=== PATIENT | female | born 1975 | race Caucasian/White ===

== ENCOUNTER 2020-02-17 01:17 | Day surgery (SDC) | payer OTHER, BC, SELFPAY ==
[2020-02-12 16:15] VITALS: BMI 42.9
--- NOTE | 2020-02-14 09:51 | PM.IMHP ---
H&P: HPI History of Present Illness Chief complaint: Large Left Ovarian Cyst Narrative: Rupa Toledo is a 44 year old female Who is status post hysterectomy. She complains of pelvic pain and has a large left ovarian cyst. This has caused her discomfort and light of the fact that has not changed and actually gotten larger for laparoscopy she will have this ovary removed. Risks and benefits reviewed including but not exclusive of aspiration 1 a, bleeding, transfusion, infection, perforation injury to bowel, bladder, ureters, or other internal organs with need for laparotomy. She had all questions answered. She read the ACOG handout entitled laparoscopy. She asked Review of Systems Review of Systems: All systems reviewed & are unremarkable except as noted in HPI and below Meds Home Medications and Allergies Home Medications Medication Instructions Recorded Confirmed Type No Home Medications 02/12/20 02/12/20 History Allergies Allergy/AdvReac Type Severity Reaction Status Date / Time morphine AdvReac SEVERE Verified 02/12/20 16:25 VOMITING Exam Const: General: no acute distress Eyes: General: appearance normal, both eyes and all related structures Neck: Neck: supple and no JVD Thyroid: thyroid normal Resp: Effort & Inspection: normal respiratory effort Auscultation: clear to auscultation bilaterally Cardio: Rate: regular rate Rhythm: regular rhythm GI: Inspection: non-distended GI Palp: Yes Soft to palpation, No Tenderness to palpation present (GI) and No Guarding due to palpation present (GI) Auscultation: normal bowel sounds : External Female Exam: normal external appearance Speculum Exam - Vagina: normal appearance of the vagina Speculum Exam - Cervix: Cervix absent Bimanual exam- vagina & uterus: uterus absent Bimanual Exam- Adnexa, other: tender Skin: General skin exam: no rashes or lesions noted Extrem: General: normal to inspection and no edema Psych: Mental Status: mental status grossly normal Affect: normal affect Assessment and Plan Additional Plan impression: Complex left ovarian cyst Plan, laparoscopic left salpingo-oophorectomy
[2020-02-17] VITALS (7 sets, daily range): BP systolic 104–140; BP diastolic 64–94; PULSE 68–96; RESP 10–18; TEMP 36.8–37; O2SAT 93–100
--- NOTE | 2020-02-17 06:31 | WPDHPUPDATE1 ---
History and Physical Update Update Date/Time: 02/17/20 06:31 History and Physical has been reviewed, including an updated exam of the patient. There are NO changes in the patient's condition. Risks, benefits, and alternatives have been discussed and questions answered. Patient agrees to proceed with procedure.
[2020-02-17] MEDS: LACTATED RINGERS 1,000 ML 30 ML IV CONT ×2 (07:00→08:52)
--- NOTE | 2020-02-17 07:01 | WPDANESEPPF ---
Anes - Initial Pre Proc Eval Procedure: Operation Date: 02/17/20 07:30 Proposed Procedures p Laparoscopic Left Salpingo-Oophorectomy - Juan Clifton MD Date/Time: 02/17/20 07:01 Surgeon: Juan Clifton MD Pre Op Diagnosis: Large Left Ovarian Cyst Patient Data Age: 44 Gender: F Height: 5 ft 4 in Weight: 113.4 kg Allergies Allergy/AdvReac Type Severity Reaction Status Date / Time morphine AdvReac SEVERE Verified 02/12/20 16:25 VOMITING Home Medications Medication Instructions Recorded Confirmed Type No Home Medications 02/12/20 02/12/20 History hydrocodone-acetaminophen [[place]] 1 tablet PO Q4H PRN #30 tablet 02/17/20 Rx Patient hx anesthesia problems: post op nausea/vomiting Family hx anesthesia problems: none PMFSH Past Medical History Medical History (Updated 02/17/20 @ 07:01 by Austyn Mckeon MD) GERD (gastroesophageal reflux disease) Morbid obesity Anes - Eval Final PreProcedure Day of Procedure 02/17/20 07:01 Patient weight: morbidly obese Heart: regular rate and rhythm Lungs: clear to auscultation Airway: Mallampati scale class III Neurological: alert and oriented Last oral intake: >/= 8 hours ASA classification: III Emergent: no Anesthetic plan: proceed Anesthesia type and monitoring: general ETT and standard monitoring Informed Consent: The patient's anesthetic plan and its attendant risks and benefits were discussed with the patient/family/POA. Questions were solicited and answers provided to the satisfaction of the patient/family/POA.
[2020-02-17] MEDS: SCOPOLAMINE 1.5 MG PATCH TRANSDERM (07:20)
--- NOTE | 2020-02-17 08:40 | PM.PROC ---
Procedure Note - Detailed Date of procedure: 02/17/20 Pre-op diagnosis: Large Left Ovarian Cyst Surgeon: Juan Clifton MD Postop diagnosis: Left ovarian cyst multiple adhesions Procedure: Laparoscopic destruction of left ovarian cyst extensive lysis of adhesions Anesthesia general endotracheal EBL: 25 Complications: None Findings: Absent uterus. A moderate size left ovarian cyst which was drained of clear fluid. Multiple adhesions were seen. Description of procedure: The patient was prepped draped in normal sterile fashion and placed in the dorsal lithotomy position. Under excellent general endotracheal anesthesia the bladder was emptied of clear urine. A sponge stick was placed in the vagina. Gloves were changed. An infraumbilical incision made. Veress needle passed in the abdomen. Abdomen filled with CO2 gas [id number]. 5mm trocar was advanced directly into the abdomen under direct visualization assuring no injury. The patient was placed in Trendelenburg. Multiple adhesions were seen a right low lower quadrant incision made in the 5mm trocar advanced under direct visualization assuring no injury. Multiple adhesions were seen using sharp dissection occasional cautery the omentum was brought down from the anterior abdominal wall. In the cul-de-sac was a moderate-sized ovarian cyst. The bowel an overlying omentum were sharply dissected off of this. It was not felt that the infundibulopelvic structure could safely be gotten 2. For this reason this was drained of clear fluid. Irrigation was undertaken until clear. No other abnormalities were seen. The lower site removed. The gas removed from the abdomen. The upper site removed. The incisions closed with 4 O Monocryl and glue. The sponge stick was removed from the vagina. All sponge, needle, instrument counts were correct. There were no immediate complications
== END 2020-02-17 10:55 | disposition home or self-care (01) ==
PROVIDERS: PCP Internal Medicine; Visit Provider Obstetrics & Gynecology
PROC: (CPT 49320; principal; 2020-02-17 07:30)
DX: N83.202 Unspecified ovarian cyst, left side (principal); N73.6 Female pelvic peritoneal adhesions (postinfective); K21.9 Gastro-esophageal reflux disease without esophagitis; E66.01 Morbid (severe) obesity due to excess calories; Z68.41 Body mass index [BMI] 40.0-44.9, adult
CPT/HCPCS: 58662; 36415; 86850; 86900; 86901; A9270; J0330; J1100; J1741; J2250; J2704; J3010; J7120

== ENCOUNTER 2022-02-08 17:16 | Outpatient (CLI) | payer OTHER, SELFPAY ==
--- NOTE | ~2022-02-08 | MM_ITS ---
EXAMINATION: MM screening radha BI w neelam HISTORY: Screening mammogram TECHNIQUE: Craniocaudal and mediolateral oblique 3-D tomosynthesis images were obtained and synthetic 2-D images were generated. CAD analysis was submitted and interpreted. COMPARISON: No prior mammogram is available for comparison at this institution. BREAST PARENCHYMAL COMPOSITION: There are scattered areas of fibroglandular density. FINDINGS: There is no evidence of suspicious mass, calcification, or architectural distortion to sugg est malignancy in either breast. There has been no suspicious interval change. IMPRESSION: 1. No mammographic evidence of malignancy. 2. Recommend routine screening mammography in one year. BI-RADS Category 1: Negative Reviewed, dictated and finalized at location A.
== END 2022-02-08 17:17 | disposition home or self-care (01) ==
LOC: ANHIMG 17:18
PROVIDERS: PCP Internal Medicine; Visit Provider Obstetrics & Gynecology
DX: Z12.31 Encounter for screening mammogram for malignant neoplasm of breast (principal)
CPT/HCPCS: 77063; 77067

== ENCOUNTER 2022-03-15 07:17 | Outpatient (CLI) | payer OTHER, SELFPAY | END 2022-03-15 07:18 | disposition home or self-care (01) | LOC: ANHLAB 07:20 | PROVIDERS: PCP Internal Medicine; Visit Provider Obstetrics & Gynecology | DX: N83.202 Unspecified ovarian cyst, left side (principal) | CPT/HCPCS: 36415; 86850; 86900; 86901 ==

== ENCOUNTER 2022-03-18 01:25 | Day surgery (SDC) | payer OTHER, SELFPAY ==
[2022-03-11 16:27] VITALS: BMI 47.2
--- NOTE | 2022-03-11 16:52 | PC.NURSE ---
Report to the Outpatient Waiting Room, entrance under the green pavilion located off [facility], at 1030 on 03-18-22. OR Time: 1230. - You and your visitor will be asked a series of questions to screen for COVID 19 for your protection. - A mask is required within the hospital. Preoperative COVID Testing Requirements: No COVID Test needed if: (proof is required; if not received patient will have Rapid Test prior to entry) - Patient has received COVID Vaccine at least 14 days prior to procedure date or - Patient has positive COVID test result within last 90 days of surgery date. COVID Test needed if above criteria is not met If not COVID vaccinated a COVID test must be conducted within 72 hours of surgery and patient is asked to isolate self from time of testing until procedure. You will go to the [email or web address] [facility] for your COVID testing. The [email or web address] [facility] site is located at the corner of [address] [facility]. You will only be called if COVID results are positive and your surgeon may reschedule your elective surgery date. Patients may have clear liquids (water, carbonated beverages, clear teas, apple juice) until 3 hours prior to surgery with a maximum of 20 ounces. 0930 - No food from midnight until time of surgery - Infants may have breast milk until 4 hours before surgery, formula 6 hours prior to surgery. - Children will be allowed to drink immediately following surgery. If applicable, please bring a bottle or sippy cup to assist with drinking. Juice, water, soda, and popsicles are readily available. For infants on formula, please bring formula the day of surgery. Pacifiers are allowed. Take the following medications with a SIP of water the morning of surgery: None Medications to discontinue per physician: Meloxicam, vitamins and supplements Date to take last dose: Meloxicam per Dr. Clifton, 03-15-22 Please no make-up, nail khmer, hairspray, perfume, deodorant, or body powder the day of surgery. No jewelry (including any body piercings) or valuables the day of surgery, leave them at home. Please take a shower or bath the night before, or the morning of, surgery with an antibacterial soap. Wear comfortable, loose fitting clothing. Children are encouraged to wear pajamas. - Jewelry must be removed prior to entering the operating room. Rings and piercings that are not removed may be cut off. - The hospital will not accept responsibility for valuables. - Please leave all valuables, including medications, at home the day of surgery. If you are going home after surgery, a licensed local company truck driver must drive you home. - NO public transportation without another adult. - We recommend that an adult stay with you for 24 hours following discharge. - We also recommend that you do not drive, make important decision, drink alcoholic beverages, or take any drugs that were not prescribed by your health care provider for at least 24 hours after your discharge time. For Pediatric surgeries, we recommend two adults accompany the child home (only one inside the building at this time). One visitor will be allowed to accompany the patient into the hospital. Patients visitor will be instructed to remain with patient at all times or leave the building. We will allow the visitor to come back to the postoperative area when patient is ready. Follow any additional instructions given to you from your surgeon. Telephone instructions given to Rupa Toledo and asked if any additional questions and then verbalized understanding. Patient advised to call surgeon office or pre surgery nurse liaison [phone] if any additional questions.
--- NOTE | 2022-03-17 08:24 | PM.IMHP ---
H&P: HPI History of Present Illness Date/Time: 03/17/22 08:24 46-year-old female 4 para 3 status post hysterectomy admitted for left salpingo-oophorectomy secondary to enlarged ovary pain and discomfort. Risks and benefits reviewed in great detail. She received the ACOG handout entitled laparoscopy. She had all questions answered and asked to proceed Chief Complaint: Pelvic pain Review of Systems Review of Systems: All systems reviewed & are unremarkable except as noted in HPI and below PMFSH Past Medical History Medical History GERD (gastroesophageal reflux disease) Morbid obesity Social History Social History Smoking status: Never smoker Second hand tobacco smoke exposure: No Alcohol intake: current Alcohol use details: occasionally Substance use: never Substance use type: does not use Spiritual care concerns: No Meds Home Medications and Allergies Home Medications Medication Instructions Recorded Confirmed Type meloxicam 15 mg PO DAILY 03/11/22 03/11/22 History Allergies Allergy/AdvReac Type Severity Reaction Status Date / Time morphine AdvReac SEVERE Verified 03/11/22 16:24 VOMITING Exam Const: General: no acute distress Eyes: General: appearance normal, both eyes and all related structures Neck: Neck: supple and no JVD Thyroid: thyroid normal Resp: Effort & Inspection: normal respiratory effort Auscultation: clear to auscultation bilaterally Cardio: Rate: regular rate Rhythm: regular rhythm GI: Inspection: non-distended GI Palp: Yes Soft to palpation, No Tenderness to palpation present (GI) and No Guarding due to palpation present (GI) Auscultation: normal bowel sounds : External Female Exam: normal external appearance Speculum Exam - Vagina: normal appearance of the vagina Speculum Exam - Cervix: Cervix absent Bimanual exam- vagina & uterus: uterus absent Bimanual Exam- Adnexa, other: tender Skin: General skin exam: no rashes or lesions noted Extrem: General: normal to inspection and no edema Psych: Mental Status: mental status grossly normal Affect: normal affect Assessment and Plan Additional Plan Impression: Left ovarian cyst Plan: Laparoscopic left salpingo-oophorectomy
[2022-03-18] VITALS (11 sets, daily range): BP systolic 131–166; BP diastolic 72–99; PULSE 68–78; RESP 12–21; TEMP 36.1–36.3; O2SAT 94–100
--- NOTE | 2022-03-18 07:22 | WPDHPUPDATE1 ---
History and Physical Update Update Date/Time: 03/18/22 07:22 History and Physical has been reviewed, including an updated exam of the patient. There are NO changes in the patient's condition. Risks, benefits, and alternatives have been discussed and questions answered. Patient agrees to proceed with procedure.
--- NOTE | 2022-03-18 11:12 | P.PNAN_ITS ---
Anes - Initial Pre Proc Eval Procedure: Operation Date: 03/18/22 12:30 Proposed Procedures p Laparoscopic Left Salpingo Oophorectomy - Juan Noble MD Date/Time: 03/18/22 11:12 Surgeon: Juan Noble MD Pre Op Diagnosis: left ovarian cyst, pelvic pain Patient Data Age: 46 Gender: F Height: 1.63 m Weight: 124.74 kg Allergies Allergy/AdvReac Type Severity Reaction Status Date / Time morphine AdvReac Severe SEVERE Verified 03/18/22 10:40 VOMITING Home Medications Medication Instructions Recorded Confirmed Type meloxicam 15 mg PO DAILY 03/11/22 03/18/22 History Olay Laser Focus 2 gummy PO DAILY 03/18/22 03/18/22 History One Daily Women's Metabolism 1 gummy PO DAILY 03/18/22 03/18/22 History coenzyme [id number] 2 pkg PO DAILY 03/18/22 03/18/22 History [OLAY Daily Energy] fluticasone propionate [Flonase] 1 spray INTRANASAL DAILY 03/18/22 03/18/22 History hydrocodone-acetaminophen 1 tablet PO Q4H PRN #20 tablet 03/18/22 Rx multivit with min-folic acid 2 tablet PO DAILY 03/18/22 03/18/22 History [Adult Multivitamin Gummies] omeprazole magnesium [Prilosec OTC] 20 mg PO DAILY PRN 03/18/22 03/18/22 History Patient hx anesthesia problems: post op nausea/vomiting Family hx anesthesia problems: none Results Review: All pre-operative results and documents have been reviewed as part of the pre-operative evaluation. [facility] Past Medical History Medical History (Updated 03/18/22 @ 11:13 by Trent Mendieta DO) GERD (gastroesophageal reflux disease) Morbid obesity PONV (postoperative nausea and vomiting) Surgical History Surgical History (Updated 03/18/22 @ 11:13 by Trent Mendieta DO) History of hysterectomy History of tubal ligation Social History Social History Smoking status: Never smoker Second hand tobacco smoke exposure: No Alcohol intake: current Alcohol use details: occasionally Substance use: never Substance use type: does not use Living arrangements: with family Spiritual care concerns: No Anes - Eval Final PreProcedure Day of Procedure 03/18/22 11:12 Patient weight: morbidly obese Heart: regular rate and rhythm Lungs: clear to auscultation and normal air movement Airway: Mallampati scale class II Neurological: alert and oriented Last oral intake: >/= 8 hours ASA classification: III Emergent: no Anesthetic plan: proceed Anesthesia type and monitoring: general ETT and standard monitoring Results Review: All pre-operative results and documents have been reviewed as part of the pre-operative evaluation. Informed Consent: The patient's anesthetic plan and its attendant risks and benefits were discussed with the patient/family/POA. Questions were solicited and answers provided to the satisfaction of the patient/family/POA.
[2022-03-18] MEDS: ACETAMINOPHEN 500 MG TABLET 1000 MG PO (11:17)
[2022-03-18] MEDS: LACTATED RINGERS 1,000 ML 30 ML IV CONT ×2 (11:25→14:07)
[2022-03-18] MEDS: KETOROLAC 15 MG/ML VIAL (*BKC) IV PUSH (11:27)
[2022-03-18] MEDS: SCOPOLAMINE 1.5 MG PATCH TRANSDERM (11:28)
--- NOTE | 2022-03-18 13:58 | P.OP_ITS ---
Procedure Note - Detailed Date of Procedure 03/18/22 Pre-op Diagnosis left ovarian cyst, pelvic pain Post-op Diagnosis Other (Pelvic adhesions) Procedure Performed Laparoscopy/left oophorectomy/extensive lysis of adhesions Surgeon Juan Noble MD Anesthesia General Indications Cis of 46-year-old female status post hysterectomy with a large ovarian cyst and pain admitted for laparoscopy. Findings [employer]r uterus and tubes. Adhesions throughout pelvis. Large left ovarian cyst benign in nature Description of Procedure Patient was prepped draped in the normal sterile fashion placed in the dorsal lithotomy position. Under excellent general trach anesthesia weighted speculum placed most removed Pilar a sponge stick placed. Bladder was emptied clear urine. The weighted speculum was removed gloves were changed. A supraumbilical incision made Veress needle passed in the abdomen. Abdomen filled with CO2 gas 15mm Hg. The Optiview was placed in the abdomen the 5mm trocar assuring no injury. The patient placed in Trendelenburg and a suprapubic incision made. The 5mm trocar advanced under direct visualization. A left lateral quadrant incision made in the 10mm trocar advanced under direct visu alization assuring no. Multiple adhesions were seen over the pelvis and none the adnexal areas could not be seen sharp dissection was undertaken dissecting the overlying omentum and a layer of colon which was stuck to the left anterior wall. Care was taken to taking small incisions and layer by layer until this was freed. The left adnexa had a large left ovarian cyst. This was sharply dissected throughout skeletonized until the infundibulopelvic structure could be controlled. Was clamped, burned, cut and placed in an Endo-Catch. Irrigation undertaken until clear and no other abnormalities seen all pedicle sites appeared clear and lower site removed. The gas removed from the abdomen the upper sites removed the incisions closed with 4 Monocryl and glue. Instruments removed from the vagina the patient was awakened. She went to recovery in satisfactory condition. All sponge, needle, instrument counts were correct. Estimated Blood Loss 5 Drains No Packing No Pathology Yes Complications No immediate complications Condition Stable Disposition PACU
[2022-03-18] MEDS: ONDANSETRON INJ 4 MG/2 ML VIAL IV PUSH (14:35)
[2022-03-18] MEDS: diphenhydrAMINE HCl INJ 50 MG/ML VIAL 25 MG IV PUSH ×2 (15:37→16:07)
[2022-03-18] MEDS: fentaNYL CITRATE INJ (*CRX) 100 MCG/2 ML VIAL 25 MCG IV PUSH (15:52)
== END 2022-03-18 16:54 | disposition home or self-care (01) ==
PROVIDERS: PCP Internal Medicine; Visit Provider Obstetrics & Gynecology
PROC: (CPT 49320; principal; 2022-03-18 12:30)
DX: D27.1 Benign neoplasm of left ovary (principal); R10.2 Pelvic and perineal pain; K21.9 Gastro-esophageal reflux disease without esophagitis; N73.6 Female pelvic peritoneal adhesions (postinfective); Z90.710 Acquired absence of both cervix and uterus; E66.01 Morbid (severe) obesity due to excess calories; Z68.42 Body mass index [BMI] 45.0-49.9, adult
CPT/HCPCS: 58661; 88305; A9270; J0330; J1100; J1200; J1885; J2250; J2405; J2704; J3010; J7030; J7120

== ENCOUNTER 2024-07-08 15:35 | Outpatient (CLI) | payer OTHER, SELFPAY ==
--- NOTE | ~2024-07-08 | MM_ITS ---
EXAMINATION: MM screening radha BI w neelam HISTORY: Screening TECHNIQUE: Craniocaudal and mediolateral oblique 3-D tomosynthesis images were obtained and synthetic 2-D images were generated. CAD analysis was submitted and interpreted. COMPARISON: 02/08/2022 BREAST PARENCHYMAL COMPOSITION: Not dense: There are scattered areas of fibroglandular density. FINDINGS: There is no evidence of suspicious mass, calcification, or architectural distortion to sugg est malignancy in either breast. There has been no suspicious interval change. IMPRESSION: 1. No mammographic evidence of malignancy. 2. Recommend routine screening mammography in one year. BI-RADS Category 1: Negative Reviewed, dictated and finalized at location B.
== END 2024-07-08 15:36 | disposition home or self-care (01) ==
LOC: ANHIMG 15:36
PROVIDERS: PCP Internal Medicine; Visit Provider Obstetrics & Gynecology
DX: Z12.31 Encounter for screening mammogram for malignant neoplasm of breast (principal)
CPT/HCPCS: 77063; 77067